=== PATIENT | female | born 1935 | race African-American/Black ===

== ENCOUNTER 2018-05-02 18:06 | Inpatient (IN) | payer MEDICARE, OTHER ==
[~2018-05-02] VITALS: Ht 152.4 cm; Wt 62.5 kg
[~2018-05-02 18:06] MED LIST: ASPI-611 PO; BACL10TA2 PO; BUDE0.5A11 NEB; CALC-331 PO; CHOL2000 PO; CLOP75TA15 PO; FLUT100D2 INH; FURO-150 PO; GARL1000; IMMU1VIA SQ; LOSA50TA3 PO; MULT-1141 PO; PANT40SU2 PO; PAT0.1OS OP; ROSU10TA PO; SPIIN INH; ePHEDrine 50MG/ML INJ. ONE
[2018-05-02] MEDS ORDERED: normal saline 1000ml 1,000 ML IV ONE (19:57)
[2018-05-02] MEDS ORDERED: normal saline 1000ML IV soln IVB ONE (20:00)
[2018-05-02] MEDS ORDERED: aspirin 81mg tab.chew PO ONE (20:00)
[2018-05-02] MEDS ORDERED: ondansetron/PF 4mg/2ml inj IV ONE (20:00)
[2018-05-02 20:22] LABS: CLARITY,URINE CLEAR (Clear); COLOR,URINE YELLOW (Yellow); GLUCOSE, URINE NEGATIVE (Neg); KETONES,URINE TRACE mg/dl (Neg); LEUKOCYTE ESTERASE ,URINE NEGATIVE (Neg); NITRITES, URINE NEGATIVE (Neg); OCCULT BLOOD,URINE TRACE-INTACT (Neg); PH,URINE 7.5 (4.8-8.0); PROTEIN,URINE 100 mg/dl (Neg)
[2018-05-02 20:28] LABS: BASOPHILS % (AUTO) 0.2 % (0-1); EOSINOPHILS # (AUTO) 0.1 X10'3 (0-0.9); EOSINOPHILS % (AUTO) 1.2 % (0-6); HEMATOCRIT 40.8 % (35.0-45.0); HEMOGLOBIN 13.2 g/dl (12.0-16.0); LYMPHOCYTES % (AUTO) 11.4 % (21-51); MEAN CORPUSCULAR HEMOGLOBIN 30.9 PG (27.0-31.0); MEAN CORPUSCULAR HGB CONC 32.3 % (33.0-36.5); MEAN CORPUSCULAR VOLUME 95.6 FL (78-98); MONOCYTES # (AUTO) 0.6 X10'3 (0-0.9); MONOCYTES % (AUTO) 7.1 % (2-12); NEUTROPHILS % (AUTO) 80.1 % (42-75); PLATELET COUNT 188 X10'3 (140-440); RED BLOOD COUNT 4.27 X10'6 (4.20-5.60); RED CELL DISTRIBUTION WIDTH 17.8 % (11.5-14.5); WHITE BLOOD COUNT 8.7 X10'3 (4.5-11.0)
[2018-05-02 20:29] LABS: UA COLLECTION TYPE CLN CATCH MIDSTREAM
[2018-05-02 20:30] LABS: BACTERIA,URINE FEW /HPF (Neg); RBC,URINE 0-2 /HPF (0-2); RENAL CELLS, URINE FEW /HPF; SQUAMOUS EPITHELIAL CELL,UR MODERATE /LPF (FEW)
[2018-05-02 20:44] LABS: INR 1.2 INR; PARTIAL THROMBOPLASTIN TIME 24 SECONDS (22-32); PROTHROMBIN TIME 12.5 SECONDS (9.0-12.0)
[2018-05-02 20:51] LABS: MAGNESIUM 2.4 MG/DL (1.5-2.4)
[2018-05-02] MEDS ORDERED: heparin 25,000 UNIT/250ml bag 250 ML IV SCH ×2 (21:03→21:51)
[2018-05-02] MEDS ORDERED: DOBUTamine-DoBUTrex 500mg/D5W 250 ML IV SCH ×2 (21:05→21:25)
[2018-05-02] MEDS ORDERED: heparin 10,000 units/1 ML INJ IV ONE (21:05)
[2018-05-02 21:09] LABS: ALANINE AMINOTRANSFERASE 45 U/L (12-78); ALBUMIN 2.7 G/DL (3.4-5.0); ALBUMIN/GLOBULIN RATIO 0.8 (1.1-1.5); ALKALINE PHOSPHATASE 73 IU/L (46-116); ANION GAP 10 (8-16); ASPARTATE AMINO TRANSFERASE 31 U/L (10-37); BILIRUBIN,TOTAL 0.8 MG/DL (0.1-1.0); BLOOD UREA NITROGEN 18 MG/DL (7-18); BUN/CREATININE RATIO 16.7 (6.6-38.0); CALCIUM 7.8 MG/DL (8.5-10.1); CHLORIDE 106 MMOL/L (99-107); CREATININE 1.08 MG/DL (0.40-0.90); GLUCOSE 96 MG/DL (70-104); POTASSIUM 4.1 MMOL/L (3.5-5.1); SODIUM 142 MMOL/L (135-145); TOTAL CARBON DIOXIDE 26.3 MMOL/L (24-32); TOTAL PROTEIN 6.1 G/DL (6.4-8.2); eGFR 59 ML/MIN
[2018-05-02] MEDS ORDERED: lisinopril 5mg tablet PO SCH (21:20)
[2018-05-02] MEDS ORDERED: diphenhydrAMINE 25mg capsule PO PRN (21:25)
[2018-05-02] MEDS ORDERED: magnesium hydroxide 30ml (MOM) UD suspension PO PRN (21:25)
[2018-05-02] MEDS ORDERED: acetaminophen 325mg tablet PO PRN (21:25)
[2018-05-02] MEDS ORDERED: metoclopramide 5 mg/ml inj IV PRN (21:25)
[2018-05-02] MEDS ORDERED: acetaminophen 650mg rectal suppository RC PRN (21:25)
[2018-05-02] MEDS ORDERED: diphenhydrAMINE 50 mg/ml inj IV PRN (21:25)
[2018-05-02] MEDS ORDERED: bisacodyl 10mg suppository rectal RC PRN (21:25)
[2018-05-02] MEDS ORDERED: heparin 10,000 units/1 ML INJ IV PRN (21:55)
[2018-05-02 22:01] LABS: LIPASE 89 U/L (73-393)
[2018-05-02 22:21] LABS: HEMOGLOBIN A1C 6.4 % (4.5-6.2)
[2018-05-02 22:22] LABS: D-DIMER 1.87 MG/L FEU (0-0.50)
[2018-05-02 22:25] LABS: PHOSPHORUS 2.5 MG/DL (2.3-4.5)
[2018-05-02 22:30] VITALS: BP 136/104
[2018-05-02] MEDS: furosemide 10 MG/1 ML 10ml inj IV SCH (23:48)
[2018-05-03] VITALS (17 sets, daily range): BP systolic 100–143; BP diastolic 57–112
[2018-05-03] MEDS: ondansetron/PF 4mg/2ml inj IV PRN ×2 (01:08→21:21)
[2018-05-03 03:35] LABS: BASOPHILS % (AUTO) 0.2 % (0-1); EOSINOPHILS # (AUTO) 0.1 X10'3 (0-0.9); EOSINOPHILS % (AUTO) 0.9 % (0-6); HEMATOCRIT 41.8 % (35.0-45.0); HEMOGLOBIN 13.6 g/dl (12.0-16.0); LYMPHOCYTES # (AUTO) 0.9 X10'3 (1.1-4.8); LYMPHOCYTES % (AUTO) 10.7 % (21-51); MEAN CORPUSCULAR HEMOGLOBIN 31.2 PG (27.0-31.0); MEAN CORPUSCULAR HGB CONC 32.6 % (33.0-36.5); MEAN CORPUSCULAR VOLUME 95.5 FL (78-98); MEAN PLATELET VOLUME 10.2 FL (7.4-10.4); MONOCYTES # (AUTO) 0.6 X10'3 (0-0.9); MONOCYTES % (AUTO) 7.4 % (2-12); NEUTROPHILS # (AUTO) 6.6 X10'3 (1.8-7.7); NEUTROPHILS % (AUTO) 80.8 % (42-75); PLATELET COUNT 190 X10'3 (140-440); RED BLOOD COUNT 4.38 X10'6 (4.20-5.60); RED CELL DISTRIBUTION WIDTH 17.6 % (11.5-14.5); WHITE BLOOD COUNT 8.2 X10'3 (4.5-11.0)
[2018-05-03 03:52] LABS: ALANINE AMINOTRANSFERASE 45 U/L (12-78); ALBUMIN 2.8 G/DL (3.4-5.0); ALBUMIN/GLOBULIN RATIO 0.8 (1.1-1.5); ALKALINE PHOSPHATASE 85 IU/L (46-116); ANION GAP 11 (8-16); ASPARTATE AMINO TRANSFERASE 31 U/L (10-37); BLOOD UREA NITROGEN 16 MG/DL (7-18); BUN/CREATININE RATIO 14.2 (6.6-38.0); CHLORIDE 105 MMOL/L (99-107); CHOL/HDL RATIO 1.8 (0.00-4.99); CHOLESTEROL 112 MG/DL (0-200); CREATININE 1.13 MG/DL (0.40-0.90); GLUCOSE 89 MG/DL (70-104); HDL CHOLESTEROL 63 MG/DL (35-60); LDL CHOLESTEROL 42 MG/DL (50-100); POTASSIUM 3.5 MMOL/L (3.5-5.1); SODIUM 142 MMOL/L (135-145); TOTAL CARBON DIOXIDE 25.7 MMOL/L (24-32); TOTAL PROTEIN 6.4 G/DL (6.4-8.2); TRIGLYCERIDES 73 MG/DL (20-135); eGFR 56 ML/MIN
[2018-05-03] MEDS: ipratropium 0.5 MG/2.5ML nebule IH SCH ×3 (03:59→20:46)
[2018-05-03] MEDS ORDERED: nitroGLYCERIN-Tridil 50MG/D5W 250 ML IV ONE (07:36)
[2018-05-03] MEDS ORDERED: fentaNYL/PF 50MCG/1 ML 2ML syringe ONE (07:37)
[2018-05-03] MEDS ORDERED: iohexol 350MG/ML 100ml bottle IV ONE (07:37)
[2018-05-03] MEDS ORDERED: midazolam 2 mg/2 ml injection ONE (07:37)
[2018-05-03] MEDS ORDERED: LIDOcaine 1% (10mg/ml)w/preservative injection 20ml MDV ONE (07:37)
[2018-05-03] MEDS ORDERED: heparin 1,000unit/ml 10ml vial 10 ML ONE (07:37)
[2018-05-03] MEDS ORDERED: iohexol 350 MG/ML 50ML vial IV ONE ×2 (07:37→09:00)
[2018-05-03] MEDS ORDERED: non-formulary drug (Aspirin (Aspir 81) 1 TABLET) PO SCH (08:00)
[2018-05-03] MEDS ORDERED: nitroGLYCERIN 0.2mg/hour patch TD SCH (08:00)
[2018-05-03] MEDS ORDERED: ROSUVASTATIN 10 MG PO SCH (08:00)
[2018-05-03] MEDS: acetylcysteine 200 MG/ml 4ml vial PO SCH ×2 (08:00→19:49)
[2018-05-03 09:26] LABS: ISTAT HGB ART 12.6 g/dl (12.0-16.0); ISTAT Hct ART 37 %PCV (35-48); ISTAT Hct MIX 33 %PCV (35-48); ISTAT O2 SATURATION ARTERIAL 93 % (95-98); ISTAT O2 SATURATION MIX VENOUS 64 % (60-80); ISTAT SOURCE ART; ISTAT SOURCE MIX
[2018-05-03] MEDS ORDERED: carvedilol 6.25mg tablet PO ONE (09:55)
[2018-05-03] MEDS ORDERED: losartan 50mg tablet PO ONE (09:55)
[2018-05-03] MEDS ORDERED: CARV-49 PO (09:55)
[2018-05-03] MEDS: DOBUTamine-DoBUTrex 500mg/D5W 250 ML IV SCH (09:55)
[2018-05-03] MEDS ORDERED: spironolactone 25 MG tablet PO ONE (09:55)
[2018-05-03] MEDS ORDERED: furosemide 20MG tablet PO ONE (09:55)
[2018-05-03] MEDS: furosemide 10 MG/1 ML 10ml inj IV SCH (10:21)
[2018-05-03] MEDS: aspirin 81mg tab.chew PO SCH (10:23)
[2018-05-03] MEDS: docusate sod 100mg capsule PO SCH ×2 (10:23→19:50)
[2018-05-03] MEDS: clopidogrel 75mg tablet PO SCH (10:25)
[2018-05-03] MEDS: baclofen 10mg tablet PO SCH ×2 (10:26→19:50)
[2018-05-03] MEDS: fluticasone nasal spray 16GM bottle NS SCH ×2 (10:30→19:51)
[2018-05-03] MEDS: nitrofuran/nitrofuran macrocrysal 100 MG capsule PO SCH ×2 (13:28→19:50)
[2018-05-03] MEDS ORDERED: magnesium Cl slow-release 64mg tablet PO PRN (13:50)
[2018-05-03] MEDS ORDERED: potassium Cl 20 mEq SR tablet PO PRN ×2 (13:50)
[2018-05-03] MEDS ORDERED: magnesium 4gm in 100ml NS 100 ML IV PRN (13:50)
[2018-05-03] MEDS ORDERED: potassium Cl 40MEQ/NS 500ml 500 ML IV PRN (13:50)
[2018-05-03] MEDS ORDERED: furosemide 40mg/4ml inj IV ONE (19:05)
[2018-05-03] MEDS: carVEDilol 12.5mg tablet PO SCH (19:51)
[2018-05-03] MEDS ORDERED: carvedilol 6.25mg tablet PO SCH (20:00)
[2018-05-03] MEDS: ROSUVASTATIN 10 MG PO SCH (21:00)
[2018-05-04] VITALS (12 sets, daily range): BP systolic 91–145; BP diastolic 50–97
[2018-05-04] MEDS: metoclopramide 5 mg/ml inj IV PRN ×2 (02:28→14:38)
[2018-05-04] MEDS: ipratropium 0.5 MG/2.5ML nebule IH SCH ×4 (03:00→20:31)
[2018-05-04 07:00] LABS: BASOPHILS % (AUTO) 0 % (0-1); EOSINOPHILS # (AUTO) 0.1 X10'3 (0-0.9); EOSINOPHILS % (AUTO) 0.6 % (0-6); HEMATOCRIT 42.2 % (35.0-45.0); HEMOGLOBIN 13.7 g/dl (12.0-16.0); LYMPHOCYTES # (AUTO) 0.6 X10'3 (1.1-4.8); LYMPHOCYTES % (AUTO) 7.8 % (21-51); MEAN CORPUSCULAR HGB CONC 32.5 % (33.0-36.5); MEAN CORPUSCULAR VOLUME 95.4 FL (78-98); MEAN PLATELET VOLUME 9.2 FL (7.4-10.4); MONOCYTES # (AUTO) 0.5 X10'3 (0-0.9); MONOCYTES % (AUTO) 6.7 % (2-12); NEUTROPHILS # (AUTO) 6.9 X10'3 (1.8-7.7); NEUTROPHILS % (AUTO) 84.9 % (42-75); PLATELET COUNT 180 X10'3 (140-440); RED BLOOD COUNT 4.42 X10'6 (4.20-5.60); WHITE BLOOD COUNT 8.2 X10'3 (4.5-11.0)
[2018-05-04 07:27] LABS: ALANINE AMINOTRANSFERASE 38 U/L (12-78); ALBUMIN 2.5 G/DL (3.4-5.0); ALBUMIN/GLOBULIN RATIO 0.7 (1.1-1.5); ALKALINE PHOSPHATASE 75 IU/L (46-116); ANION GAP 12 (8-16); ASPARTATE AMINO TRANSFERASE 28 U/L (10-37); BLOOD UREA NITROGEN 16 MG/DL (7-18); BUN/CREATININE RATIO 11.5 (6.6-38.0); CHLORIDE 105 MMOL/L (99-107); CHOL/HDL RATIO 1.9 (0.00-4.99); CHOLESTEROL 109 MG/DL (0-200); CREATININE 1.39 MG/DL (0.40-0.90); GLUCOSE 86 MG/DL (70-104); HDL CHOLESTEROL 58 MG/DL (35-60); LDL CHOLESTEROL 44 MG/DL (50-100); MAGNESIUM 2.3 MG/DL (1.5-2.4); POTASSIUM 4.4 MMOL/L (3.5-5.1); SODIUM 139 MMOL/L (135-145); TRIGLYCERIDES 67 MG/DL (20-135); eGFR 44 ML/MIN
[2018-05-04] MEDS ORDERED: losartan 50mg tablet PO SCH (08:00)
[2018-05-04] MEDS ORDERED: furosemide 40mg tablet PO SCH (08:00)
[2018-05-04] MEDS: clopidogrel 75mg tablet PO SCH (08:20)
[2018-05-04] MEDS: spironolactone 25 MG tablet PO SCH (08:20)
[2018-05-04] MEDS: furosemide 10 MG/1 ML 10ml inj IV SCH (08:20)
[2018-05-04] MEDS: aspirin 81mg tab.chew PO SCH (08:20)
[2018-05-04] MEDS: baclofen 10mg tablet PO SCH ×2 (08:21→20:45)
[2018-05-04] MEDS: docusate sod 100mg capsule PO SCH ×2 (08:21→20:45)
[2018-05-04] MEDS: fluticasone nasal spray 16GM bottle NS SCH ×2 (08:21→20:45)
[2018-05-04] MEDS: nitrofuran/nitrofuran macrocrysal 100 MG capsule PO SCH (08:21)
[2018-05-04] MEDS: carVEDilol 12.5mg tablet PO SCH ×2 (08:21→20:45)
[2018-05-04] MEDS: acetylcysteine 200 MG/ml 4ml vial PO SCH ×2 (08:22→20:00)
[2018-05-04] MEDS: DOBUTamine-DoBUTrex 500mg/D5W 250 ML IV SCH (14:40)
[2018-05-04] MEDS: ROSUVASTATIN 10 MG PO SCH (20:46)
[2018-05-04] MEDS: ondansetron/PF 4mg/2ml inj IV PRN (22:44)
[2018-05-05] VITALS (33 sets, daily range): BP systolic 52–160; BP diastolic 27–96
[2018-05-05] MEDS: metoclopramide 5 mg/ml inj IV PRN ×2 (00:08→18:57)
[2018-05-05] MEDS: ipratropium 0.5 MG/2.5ML nebule IH SCH ×4 (03:00→22:09)
[2018-05-05] MEDS ORDERED: diphenhydrAMINE 50 mg/ml inj IM ONE (03:10)
[2018-05-05 07:20] LABS: ALANINE AMINOTRANSFERASE 36 U/L (12-78); ALBUMIN 2.6 G/DL (3.4-5.0); ALBUMIN/GLOBULIN RATIO 0.7 (1.1-1.5); ALKALINE PHOSPHATASE 79 IU/L (46-116); ANION GAP 14 (8-16); ASPARTATE AMINO TRANSFERASE 30 U/L (10-37); BILIRUBIN,TOTAL 1.1 MG/DL (0.1-1.0); BLOOD UREA NITROGEN 18 MG/DL (7-18); BUN/CREATININE RATIO 10.2 (6.6-38.0); CALCIUM 8.6 MG/DL (8.5-10.1); CHLORIDE 105 MMOL/L (99-107); CREATININE 1.77 MG/DL (0.40-0.90); GLUCOSE 90 MG/DL (70-104); SODIUM 140 MMOL/L (135-145); TOTAL CARBON DIOXIDE 21.3 MMOL/L (24-32); TOTAL PROTEIN 6.3 G/DL (6.4-8.2); eGFR 33 ML/MIN
[2018-05-05 07:23] LABS: POTASSIUM 3.7 MMOL/L (3.5-5.1)
[2018-05-05 07:45] LABS: BASOPHILS % (AUTO) 0.2 % (0-1); EOSINOPHILS % (AUTO) 0.2 % (0-6); HEMATOCRIT 42.5 % (35.0-45.0); LYMPHOCYTES # (AUTO) 0.6 X10'3 (1.1-4.8); LYMPHOCYTES % (AUTO) 7.4 % (21-51); MEAN CORPUSCULAR HEMOGLOBIN 31.1 PG (27.0-31.0); MEAN CORPUSCULAR HGB CONC 32.8 % (33.0-36.5); MEAN CORPUSCULAR VOLUME 94.7 FL (78-98); MEAN PLATELET VOLUME 8.9 FL (7.4-10.4); MONOCYTES # (AUTO) 0.6 X10'3 (0-0.9); MONOCYTES % (AUTO) 7.4 % (2-12); NEUTROPHILS % (AUTO) 84.8 % (42-75); PLATELET COUNT 182 X10'3 (140-440); RED BLOOD COUNT 4.48 X10'6 (4.20-5.60); RED CELL DISTRIBUTION WIDTH 17.5 % (11.5-14.5); WHITE BLOOD COUNT 8.3 X10'3 (4.5-11.0)
[2018-05-05] MEDS: baclofen 10mg tablet PO SCH ×2 (08:00→21:09)
[2018-05-05] MEDS: acetylcysteine 200 MG/ml 4ml vial PO SCH ×2 (08:00→21:10)
[2018-05-05] MEDS: spironolactone 25 MG tablet PO SCH (08:33)
[2018-05-05] MEDS: docusate sod 100mg capsule PO SCH ×2 (08:33→21:10)
[2018-05-05] MEDS: clopidogrel 75mg tablet PO SCH (08:33)
[2018-05-05] MEDS: aspirin 81mg tab.chew PO SCH (08:33)
[2018-05-05] MEDS: carVEDilol 12.5mg tablet PO SCH ×2 (08:33→21:09)
[2018-05-05] MEDS: furosemide 10 MG/1 ML 10ml inj IV SCH (08:34)
[2018-05-05] MEDS: fluticasone nasal spray 16GM bottle NS SCH ×2 (08:35→20:00)
[2018-05-05 09:34] LABS: MAGNESIUM 2.4 MG/DL (1.5-2.4)
[2018-05-05] MEDS: losartan 50mg tablet PO SCH (12:31)
[2018-05-05] MEDS ORDERED: hydrALAZINE 20mg/ml inj. IV PRN (13:45)
[2018-05-05] MEDS: ondansetron/PF 4mg/2ml inj IV PRN (15:18)
[2018-05-05] MEDS: DOBUTamine-DoBUTrex 500mg/D5W 250 ML IV SCH (15:27)
[2018-05-05] MEDS ORDERED: MIDAZolam 5mg/5ml vial ONE (15:34)
[2018-05-05] MEDS ORDERED: fentaNYL/PF 50MCG/1 ML 2ML syringe ONE (15:34)
[2018-05-05] MEDS ORDERED: LIDOcaine Viscous 15ml cup ONE (15:34)
[2018-05-05] MEDS: pantoprazole 40MG/NS 100ML BAG 100 ML IV SCH ×2 (19:13→23:25)
[2018-05-05] MEDS ORDERED: pantoprazole 40 MG vial IV SCH (20:00)
[2018-05-05] MEDS: ROSUVASTATIN 10 MG PO SCH (21:00)
[2018-05-06] MEDS: ipratropium 0.5 MG/2.5ML nebule IH SCH ×4 (02:50→20:24)
[2018-05-06 03:00] VITALS: BP 157/79
[2018-05-06 06:00] VITALS: BP 145/86
[2018-05-06 06:57] LABS: BASOPHILS % (AUTO) 0.1 % (0-1); EOSINOPHILS # (AUTO) 0.1 X10'3 (0-0.9); EOSINOPHILS % (AUTO) 0.6 % (0-6); HEMATOCRIT 44.6 % (35.0-45.0); HEMOGLOBIN 14.7 g/dl (12.0-16.0); LYMPHOCYTES # (AUTO) 0.6 X10'3 (1.1-4.8); MEAN CORPUSCULAR HGB CONC 32.9 % (33.0-36.5); MEAN CORPUSCULAR VOLUME 94.2 FL (78-98); MEAN PLATELET VOLUME 9.3 FL (7.4-10.4); MONOCYTES # (AUTO) 0.6 X10'3 (0-0.9); MONOCYTES % (AUTO) 6.9 % (2-12); NEUTROPHILS # (AUTO) 8.1 X10'3 (1.8-7.7); NEUTROPHILS % (AUTO) 86.4 % (42-75); PLATELET COUNT 183 X10'3 (140-440); RED BLOOD COUNT 4.73 X10'6 (4.20-5.60); RED CELL DISTRIBUTION WIDTH 17.1 % (11.5-14.5); WHITE BLOOD COUNT 9.3 X10'3 (4.5-11.0)
[2018-05-06 07:39] LABS: ALANINE AMINOTRANSFERASE 39 U/L (12-78); ALBUMIN 2.6 G/DL (3.4-5.0); ALBUMIN/GLOBULIN RATIO 0.7 (1.1-1.5); ALKALINE PHOSPHATASE 77 IU/L (46-116); ANION GAP 16 (8-16); ASPARTATE AMINO TRANSFERASE 28 U/L (10-37); BILIRUBIN,TOTAL 1.3 MG/DL (0.1-1.0); BLOOD UREA NITROGEN 21 MG/DL (7-18); BUN/CREATININE RATIO 11.2 (6.6-38.0); CALCIUM 8.6 MG/DL (8.5-10.1); CHLORIDE 105 MMOL/L (99-107); CREATININE 1.87 MG/DL (0.40-0.90); GLUCOSE 82 MG/DL (70-104); SODIUM 142 MMOL/L (135-145); TOTAL CARBON DIOXIDE 20.9 MMOL/L (24-32); TOTAL PROTEIN 6.2 G/DL (6.4-8.2); eGFR 31 ML/MIN
[2018-05-06] MEDS: clopidogrel 75mg tablet PO SCH (07:52)
[2018-05-06] MEDS: carVEDilol 12.5mg tablet PO SCH ×2 (07:53→21:01)
[2018-05-06] MEDS: acetaminophen 325mg tablet PO PRN (07:54)
[2018-05-06] MEDS: baclofen 10mg tablet PO SCH (07:54)
[2018-05-06] MEDS: losartan 50mg tablet PO SCH (07:55)
[2018-05-06] MEDS: aspirin 81mg tab.chew PO SCH (07:55)
[2018-05-06 07:56] LABS: POTASSIUM 2.9 MMOL/L (3.5-5.1)
[2018-05-06] MEDS: spironolactone 25 MG tablet PO SCH (07:56)
[2018-05-06] MEDS: fluticasone nasal spray 16GM bottle NS SCH ×2 (07:56→21:02)
[2018-05-06] MEDS: docusate sod 100mg capsule PO SCH ×2 (07:59→21:01)
[2018-05-06] MEDS: pantoprazole 40MG/NS 100ML BAG 100 ML IV SCH ×2 (09:51→10:06)
[2018-05-06] MEDS: ondansetron/PF 4mg/2ml inj IV PRN (10:42)
[2018-05-06] MEDS: potassium Cl 40MEQ/NS 500ml 500 ML IV PRN ×2 (10:45→17:45)
[2018-05-06 11:00] VITALS: BP 147/100
[2018-05-06] MEDS ORDERED: metoclopramide 5 mg/ml inj IV PRN (12:10)
[2018-05-06] MEDS: metoclopramide 5 mg/ml inj IV PRN ×2 (12:43→19:40)
[2018-05-06 15:00] VITALS: BP 148/89
[2018-05-06] MEDS: lactose-reduced food (Ensure High Protein) 237ml bottle PO SCH (18:00)
[2018-05-06 19:00] VITALS: BP 150/94
[2018-05-06] MEDS ORDERED: magnesium Cl slow-release 64mg tablet PO PRN (19:20)
[2018-05-06] MEDS ORDERED: potassium Cl 40MEQ/NS 500ml 500 ML IV PRN ×2 (19:20)
[2018-05-06] MEDS ORDERED: potassium Cl 20 mEq SR tablet PO PRN ×2 (19:20)
[2018-05-06] MEDS ORDERED: magnesium 4gm in 100ml NS 100 ML IV PRN (19:20)
[2018-05-06] MEDS ORDERED: pantoprazole 40 MG vial IV ONE (20:00)
[2018-05-06] MEDS: ROSUVASTATIN 10 MG PO SCH (21:00)
[2018-05-06] MEDS: heparin, porcine 5000 units/ml vial SQ SCH (21:00)
[2018-05-06 23:00] VITALS: BP 144/91
[2018-05-07] VITALS (12 sets, daily range): BP systolic 76–152; BP diastolic 55–100
[2018-05-07] MEDS: ipratropium 0.5 MG/2.5ML nebule IH SCH ×4 (02:21→21:19)
[2018-05-07 05:54] LABS: BASOPHILS % (AUTO) 0 % (0-1); EOSINOPHILS # (AUTO) 0.1 X10'3 (0-0.9); EOSINOPHILS % (AUTO) 0.7 % (0-6); HEMATOCRIT 42.4 % (35.0-45.0); HEMOGLOBIN 13.9 g/dl (12.0-16.0); LYMPHOCYTES # (AUTO) 0.6 X10'3 (1.1-4.8); LYMPHOCYTES % (AUTO) 6.7 % (21-51); MEAN CORPUSCULAR HEMOGLOBIN 31.2 PG (27.0-31.0); MEAN CORPUSCULAR HGB CONC 32.8 % (33.0-36.5); MEAN CORPUSCULAR VOLUME 95.3 FL (78-98); MEAN PLATELET VOLUME 9.3 FL (7.4-10.4); MONOCYTES # (AUTO) 0.6 X10'3 (0-0.9); MONOCYTES % (AUTO) 7.1 % (2-12); NEUTROPHILS # (AUTO) 7.7 X10'3 (1.8-7.7); NEUTROPHILS % (AUTO) 85.5 % (42-75); PLATELET COUNT 161 X10'3 (140-440); RED BLOOD COUNT 4.45 X10'6 (4.20-5.60); RED CELL DISTRIBUTION WIDTH 17.9 % (11.5-14.5)
[2018-05-07] MEDS: DOBUTamine-DoBUTrex 500mg/D5W 250 ML IV SCH (06:44)
[2018-05-07 07:46] LABS: ALANINE AMINOTRANSFERASE 34 U/L (12-78); ALBUMIN 2.6 G/DL (3.4-5.0); ALBUMIN/GLOBULIN RATIO 0.7 (1.1-1.5); ALKALINE PHOSPHATASE 73 IU/L (46-116); ANION GAP 13 (8-16); ASPARTATE AMINO TRANSFERASE 31 U/L (10-37); BILIRUBIN,TOTAL 1.4 MG/DL (0.1-1.0); BLOOD UREA NITROGEN 22 MG/DL (7-18); BUN/CREATININE RATIO 14.3 (6.6-38.0); CALCIUM 8.9 MG/DL (8.5-10.1); CHLORIDE 109 MMOL/L (99-107); CREATININE 1.54 MG/DL (0.40-0.90); GLUCOSE 71 MG/DL (70-104); MAGNESIUM 2.4 MG/DL (1.5-2.4); PHOSPHORUS 3.3 MG/DL (2.3-4.5); POTASSIUM 4.5 MMOL/L (3.5-5.1); SODIUM 142 MMOL/L (135-145); TOTAL CARBON DIOXIDE 20.1 MMOL/L (24-32); TOTAL PROTEIN 6.1 G/DL (6.4-8.2); eGFR 39 ML/MIN
[2018-05-07] MEDS: aspirin 81mg tab.chew PO SCH ×2 (08:00→09:25)
[2018-05-07] MEDS: docusate sod 100mg capsule PO SCH ×3 (08:00→21:55)
[2018-05-07] MEDS: lactose-reduced food (Ensure High Protein) 237ml bottle PO SCH ×3 (08:00→18:00)
[2018-05-07] MEDS: fluticasone nasal spray 16GM bottle NS SCH ×2 (08:00→21:58)
[2018-05-07] MEDS: losartan 50mg tablet PO SCH ×2 (08:00→09:26)
[2018-05-07] MEDS: ondansetron/PF 4mg/2ml inj IV PRN (09:26)
[2018-05-07] MEDS: heparin, porcine 5000 units/ml vial SQ SCH ×2 (09:26→21:55)
[2018-05-07] MEDS: spironolactone 25 MG tablet PO SCH (09:26)
[2018-05-07] MEDS: carVEDilol 12.5mg tablet PO SCH ×2 (09:26→21:55)
[2018-05-07] MEDS ORDERED: normal saline 1000ml 1,000 ML IV ONE (12:00)
[2018-05-07] MEDS: Protein Shake (high protein) 240ml (8oz) cup PO SCH ×2 (13:00→17:51)
[2018-05-07] MEDS: metoclopramide 10mg/10 ml UD oral solution PO SCH (16:45)
[2018-05-07] MEDS: acetaminophen 325mg tablet PO PRN (16:47)
[2018-05-07] MEDS: ROSUVASTATIN 10 MG PO SCH (21:00)
[2018-05-07] MEDS: gabapentin 300mg capsule PO SCH (21:55)
[2018-05-07] MEDS: pantoprazole 40 MG vial IV SCH (21:56)
[2018-05-08] VITALS (19 sets, daily range): BP systolic 76–176; BP diastolic 43–113
[2018-05-08] MEDS: metoclopramide 10mg/10 ml UD oral solution PO SCH ×4 (00:59→23:53)
[2018-05-08] MEDS: ipratropium 0.5 MG/2.5ML nebule IH SCH ×4 (03:16→21:14)
[2018-05-08 06:59] LABS: BASOPHILS % (AUTO) 0.3 % (0-1); EOSINOPHILS % (AUTO) 0 % (0-6); HEMATOCRIT 40.7 % (35.0-45.0); HEMOGLOBIN 13.4 g/dl (12.0-16.0); LYMPHOCYTES # (AUTO) 0.6 X10'3 (1.1-4.8); LYMPHOCYTES % (AUTO) 8.2 % (21-51); MEAN CORPUSCULAR HEMOGLOBIN 31.4 PG (27.0-31.0); MEAN PLATELET VOLUME 9.5 FL (7.4-10.4); MONOCYTES # (AUTO) 0.6 X10'3 (0-0.9); NEUTROPHILS % (AUTO) 83.5 % (42-75); PLATELET COUNT 180 X10'3 (140-440); RED BLOOD COUNT 4.28 X10'6 (4.20-5.60); RED CELL DISTRIBUTION WIDTH 17.6 % (11.5-14.5); WHITE BLOOD COUNT 7.2 X10'3 (4.5-11.0)
[2018-05-08] MEDS: pantoprazole 40 MG vial IV SCH (07:23)
[2018-05-08] MEDS: fluticasone nasal spray 16GM bottle NS SCH ×2 (07:24→20:00)
[2018-05-08] MEDS: aspirin 81mg tab.chew PO SCH (07:24)
[2018-05-08] MEDS: heparin, porcine 5000 units/ml vial SQ SCH ×2 (07:24→21:07)
[2018-05-08] MEDS: carVEDilol 12.5mg tablet PO SCH ×2 (07:24→20:00)
[2018-05-08] MEDS: gabapentin 300mg capsule PO SCH ×2 (07:24→21:07)
[2018-05-08] MEDS: losartan 50mg tablet PO SCH (07:24)
[2018-05-08] MEDS: docusate sod 100mg capsule PO SCH ×2 (07:25→21:07)
[2018-05-08 07:26] LABS: ALANINE AMINOTRANSFERASE 26 U/L (12-78); ALBUMIN 2.3 G/DL (3.4-5.0); ALBUMIN/GLOBULIN RATIO 0.7 (1.1-1.5); ALKALINE PHOSPHATASE 72 IU/L (46-116); ANION GAP 12 (8-16); ASPARTATE AMINO TRANSFERASE 26 U/L (10-37); BILIRUBIN,TOTAL 1.1 MG/DL (0.1-1.0); BLOOD UREA NITROGEN 21 MG/DL (7-18); BUN/CREATININE RATIO 17.5 (6.6-38.0); CALCIUM 8.5 MG/DL (8.5-10.1); CHLORIDE 106 MMOL/L (99-107); GLUCOSE 95 MG/DL (70-104); MAGNESIUM 2.2 MG/DL (1.5-2.4); POTASSIUM 3.9 MMOL/L (3.5-5.1); SODIUM 137 MMOL/L (135-145); TOTAL CARBON DIOXIDE 18.8 MMOL/L (24-32); TOTAL PROTEIN 5.7 G/DL (6.4-8.2); eGFR 52 ML/MIN
[2018-05-08] MEDS: spironolactone 25 MG tablet PO SCH (07:32)
[2018-05-08] MEDS: lactose-reduced food (Ensure High Protein) 237ml bottle PO SCH ×3 (08:00→18:00)
[2018-05-08] MEDS: Protein Shake (high protein) 240ml (8oz) cup PO SCH ×3 (08:00→18:00)
[2018-05-08 10:01] LABS: ABG BASE EXCESS -9.7 mmol/L (-2.0-3.0); ABG HCO3 13.6 mmol/L (22.0-26.0); ABG OXYGEN SATURATION 97.2 % (95-98); ABG PCO2 (T) 24.4 mmHg (32.0-45.0); ABG PH (T) 7.365 (7.350-7.450); ABG PO2 (T) 101.9 mmHg (83-108); ALLEN'S TEST Positive; FCOHb 0.7 % (0.5-1.5); FLOW 4 L/min; FO2Hb 96.5 % (94-100); TOTAL HEMOGLOBIN 14.5 G/dl (12.0-16.0)
[2018-05-08] MEDS: DOBUTamine-DoBUTrex 500mg/D5W 250 ML IV SCH ×2 (10:29→13:34)
[2018-05-08] MEDS: acetaminophen 325mg tablet PO PRN ×2 (17:00→23:53)
[2018-05-08] MEDS ORDERED: albumin (Human) 5% 250ml 250 ML IV ONE ×2 (19:20)
[2018-05-08 19:45] LABS: BASOPHILS % (AUTO) 0.2 % (0-1); EOSINOPHILS # (AUTO) 0.1 X10'3 (0-0.9); EOSINOPHILS % (AUTO) 0.9 % (0-6); HEMATOCRIT 40.9 % (35.0-45.0); HEMOGLOBIN 13.4 g/dl (12.0-16.0); LYMPHOCYTES # (AUTO) 0.5 X10'3 (1.1-4.8); LYMPHOCYTES % (AUTO) 5.2 % (21-51); MEAN CORPUSCULAR HEMOGLOBIN 31.1 PG (27.0-31.0); MEAN CORPUSCULAR HGB CONC 32.8 % (33.0-36.5); MEAN CORPUSCULAR VOLUME 94.7 FL (78-98); MEAN PLATELET VOLUME 8.9 FL (7.4-10.4); MONOCYTES # (AUTO) 0.6 X10'3 (0-0.9); MONOCYTES % (AUTO) 6.3 % (2-12); NEUTROPHILS # (AUTO) 8.2 X10'3 (1.8-7.7); NEUTROPHILS % (AUTO) 87.4 % (42-75); PLATELET COUNT 180 X10'3 (140-440); RED BLOOD COUNT 4.32 X10'6 (4.20-5.60); RED CELL DISTRIBUTION WIDTH 17.8 % (11.5-14.5); WHITE BLOOD COUNT 9.3 X10'3 (4.5-11.0)
[2018-05-08 20:04] LABS: ALANINE AMINOTRANSFERASE 38 U/L (12-78); ALBUMIN 2.3 G/DL (3.4-5.0); ALBUMIN/GLOBULIN RATIO 0.7 (1.1-1.5); ALKALINE PHOSPHATASE 75 IU/L (46-116); ANION GAP 13 (8-16); ASPARTATE AMINO TRANSFERASE 35 U/L (10-37); BILIRUBIN,TOTAL 1.1 MG/DL (0.1-1.0); BLOOD UREA NITROGEN 22 MG/DL (7-18); BUN/CREATININE RATIO 17.6 (6.6-38.0); CALCIUM 8.2 MG/DL (8.5-10.1); CHLORIDE 105 MMOL/L (99-107); CREATININE 1.25 MG/DL (0.40-0.90); GLUCOSE 117 MG/DL (70-104); MAGNESIUM 2.1 MG/DL (1.5-2.4); POTASSIUM 3.8 MMOL/L (3.5-5.1); SODIUM 136 MMOL/L (135-145); TOTAL CARBON DIOXIDE 18.3 MMOL/L (24-32); TOTAL PROTEIN 5.6 G/DL (6.4-8.2); eGFR 50 ML/MIN
[2018-05-08] MEDS: ROSUVASTATIN 10 MG PO SCH (21:00)
[2018-05-08] MEDS: pantoprazole 40mg Tablet.DR PO SCH (21:07)
[2018-05-09] VITALS (24 sets, daily range): BP systolic 76–166; BP diastolic 51–103
[2018-05-09] MEDS: ipratropium 0.5 MG/2.5ML nebule IH SCH ×4 (03:50→20:40)
[2018-05-09] MEDS ORDERED: furosemide 40mg/4ml inj IV ONE (04:55)
[2018-05-09 05:29] LABS: BASOPHILS % (AUTO) 0.2 % (0-1); EOSINOPHILS # (AUTO) 0.1 X10'3 (0-0.9); EOSINOPHILS % (AUTO) 1.3 % (0-6); HEMATOCRIT 35.9 % (35.0-45.0); LYMPHOCYTES # (AUTO) 0.5 X10'3 (1.1-4.8); LYMPHOCYTES % (AUTO) 6.5 % (21-51); MEAN CORPUSCULAR HEMOGLOBIN 31.7 PG (27.0-31.0); MEAN CORPUSCULAR HGB CONC 33.3 % (33.0-36.5); MEAN PLATELET VOLUME 9.4 FL (7.4-10.4); MONOCYTES # (AUTO) 0.6 X10'3 (0-0.9); MONOCYTES % (AUTO) 7.6 % (2-12); NEUTROPHILS # (AUTO) 6.1 X10'3 (1.8-7.7); NEUTROPHILS % (AUTO) 84.4 % (42-75); PLATELET COUNT 154 X10'3 (140-440); RED BLOOD COUNT 3.78 X10'6 (4.20-5.60); RED CELL DISTRIBUTION WIDTH 17.6 % (11.5-14.5); WHITE BLOOD COUNT 7.2 X10'3 (4.5-11.0)
[2018-05-09 05:59] LABS: ALANINE AMINOTRANSFERASE 32 U/L (12-78); ALBUMIN 2.8 G/DL (3.4-5.0); ALKALINE PHOSPHATASE 56 IU/L (46-116); ANION GAP 14 (8-16); ASPARTATE AMINO TRANSFERASE 31 U/L (10-37); BILIRUBIN,TOTAL 1.2 MG/DL (0.1-1.0); BLOOD UREA NITROGEN 22 MG/DL (7-18); BUN/CREATININE RATIO 19.5 (6.6-38.0); CALCIUM 8.2 MG/DL (8.5-10.1); CHLORIDE 106 MMOL/L (99-107); CREATININE 1.13 MG/DL (0.40-0.90); GLUCOSE 98 MG/DL (70-104); MAGNESIUM 2.2 MG/DL (1.5-2.4); PHOSPHORUS 3.1 MG/DL (2.3-4.5); POTASSIUM 3.7 MMOL/L (3.5-5.1); SODIUM 139 MMOL/L (135-145); TOTAL CARBON DIOXIDE 19.1 MMOL/L (24-32); TOTAL PROTEIN 5.6 G/DL (6.4-8.2); eGFR 56 ML/MIN
[2018-05-09] MEDS: lactose-reduced food (Ensure High Protein) 237ml bottle PO SCH ×3 (08:00→18:00)
[2018-05-09] MEDS: fluticasone nasal spray 16GM bottle NS SCH ×2 (08:00→20:55)
[2018-05-09] MEDS: pantoprazole 40mg Tablet.DR PO SCH ×2 (08:15→20:52)
[2018-05-09] MEDS: aspirin 81mg tab.chew PO SCH (08:15)
[2018-05-09] MEDS: gabapentin 300mg capsule PO SCH (08:15)
[2018-05-09] MEDS: docusate sod 100mg capsule PO SCH ×2 (08:15→20:52)
[2018-05-09] MEDS: carVEDilol 12.5mg tablet PO SCH (08:15)
[2018-05-09] MEDS: losartan 50mg tablet PO SCH (08:15)
[2018-05-09] MEDS: Protein Shake (high protein) 240ml (8oz) cup PO SCH ×3 (08:15→18:00)
[2018-05-09] MEDS: heparin, porcine 5000 units/ml vial SQ SCH ×2 (08:16→20:52)
[2018-05-09] MEDS: spironolactone 25 MG tablet PO SCH (08:16)
[2018-05-09] MEDS: metoclopramide 10mg/10 ml UD oral solution PO SCH ×2 (08:20→16:00)
[2018-05-09] MEDS: acetaminophen 325mg tablet PO PRN (09:15)
[2018-05-09] MEDS ORDERED: traMADol 50MG tablet PO PRN (10:20)
[2018-05-09 14:01] LABS: ABG BASE EXCESS -5.3 mmol/L (-2.0-3.0); ABG HCO3 17.8 mmol/L (22.0-26.0); ABG OXYGEN SATURATION 97.2 % (95-98); ABG PH (T) 7.421 (7.350-7.450); ALLEN'S TEST Positive; FCOHb 0.4 % (0.5-1.5); FLOW 2 L/min; FO2Hb 96.8 % (94-100); RESPIRATORY RATE (OBSERVED) 14 b/min; TOTAL HEMOGLOBIN 13.1 G/dl (12.0-16.0)
[2018-05-09] MEDS ORDERED: albumin (human) 25% 100ml IV 100 ML IV ONE ×2 (17:05)
[2018-05-09] MEDS: ROSUVASTATIN 10 MG PO SCH (20:53)
[2018-05-09] MEDS: carvedilol 6.25mg tablet PO SCH (20:53)
[2018-05-09] MEDS: DOBUTamine-DoBUTrex 500mg/D5W 250 ML IV SCH (21:37)
[2018-05-10] VITALS (26 sets, daily range): BP systolic 71–152; BP diastolic 42–89
[2018-05-10] MEDS: ipratropium 0.5 MG/2.5ML nebule IH SCH ×4 (02:49→21:42)
[2018-05-10] MEDS: acetaminophen 325mg tablet PO PRN ×3 (03:07→21:04)
[2018-05-10 05:24] LABS: BASOPHILS % (AUTO) 0.5 % (0-1); EOSINOPHILS % (AUTO) 0 % (0-6); HEMATOCRIT 34.8 % (35.0-45.0); HEMOGLOBIN 11.5 g/dl (12.0-16.0); LYMPHOCYTES # (AUTO) 0.4 X10'3 (1.1-4.8); LYMPHOCYTES % (AUTO) 4.7 % (21-51); MEAN CORPUSCULAR HEMOGLOBIN 31.4 PG (27.0-31.0); MEAN PLATELET VOLUME 9.6 FL (7.4-10.4); MONOCYTES # (AUTO) 0.6 X10'3 (0-0.9); MONOCYTES % (AUTO) 8.1 % (2-12); NEUTROPHILS # (AUTO) 6.5 X10'3 (1.8-7.7); NEUTROPHILS % (AUTO) 86.7 % (42-75); PLATELET COUNT 134 X10'3 (140-440); RED BLOOD COUNT 3.66 X10'6 (4.20-5.60); RED CELL DISTRIBUTION WIDTH 17.5 % (11.5-14.5); WHITE BLOOD COUNT 7.5 X10'3 (4.5-11.0)
[2018-05-10 05:37] LABS: ALANINE AMINOTRANSFERASE 26 U/L (12-78); ALBUMIN 3.5 G/DL (3.4-5.0); ALBUMIN/GLOBULIN RATIO 1.5 (1.1-1.5); ALKALINE PHOSPHATASE 48 IU/L (46-116); ANION GAP 13 (8-16); ASPARTATE AMINO TRANSFERASE 21 U/L (10-37); BILIRUBIN,TOTAL 1.6 MG/DL (0.1-1.0); BLOOD UREA NITROGEN 17 MG/DL (7-18); BUN/CREATININE RATIO 17.9 (6.6-38.0); CHLORIDE 104 MMOL/L (99-107); CREATININE 0.95 MG/DL (0.40-0.90); GLUCOSE 111 MG/DL (70-104); MAGNESIUM 1.9 MG/DL (1.5-2.4); PHOSPHORUS 2.4 MG/DL (2.3-4.5); POTASSIUM 4.1 MMOL/L (3.5-5.1); SODIUM 137 MMOL/L (135-145); TOTAL CARBON DIOXIDE 20.1 MMOL/L (24-32); TOTAL PROTEIN 5.8 G/DL (6.4-8.2); eGFR 68 ML/MIN
[2018-05-10] MEDS: lactose-reduced food (Ensure High Protein) 237ml bottle PO SCH ×4 (08:00→22:49)
[2018-05-10] MEDS: Protein Shake (high protein) 240ml (8oz) cup PO SCH ×3 (08:00→18:00)
[2018-05-10] MEDS ORDERED: losartan 25mg tablet PO SCH (08:00)
[2018-05-10] MEDS: aspirin 81mg tab.chew PO SCH (08:02)
[2018-05-10] MEDS: docusate sod 100mg capsule PO SCH ×2 (08:02→20:56)
[2018-05-10] MEDS: fluticasone nasal spray 16GM bottle NS SCH ×2 (08:02→20:57)
[2018-05-10] MEDS: carvedilol 6.25mg tablet PO SCH (08:02)
[2018-05-10] MEDS: heparin, porcine 5000 units/ml vial SQ SCH ×2 (08:03→20:56)
[2018-05-10] MEDS: pantoprazole 40mg Tablet.DR PO SCH ×2 (08:03→20:56)
[2018-05-10] MEDS: spironolactone 25 MG tablet PO SCH (08:03)
[2018-05-10] MEDS: metoclopramide 10mg/10 ml UD oral solution PO SCH ×3 (08:03→16:15)
[2018-05-10] MEDS: mag hydrox/Alum hydrox/simeth 30ml oral suspension PO PRN (10:47)
[2018-05-10] MEDS ORDERED: levetiracetam inj 500 MG in normal saline 100ml IV soln 95 ML IV ONE (11:45)
[2018-05-10] MEDS ORDERED: albumin (human) 25% 100ml IV 100 ML IV ONE ×3 (12:25→21:20)
[2018-05-10] MEDS ORDERED: metoclopramide 10mg/10 ml UD oral solution PO PRN (17:30)
[2018-05-10] MEDS: levetiracetam inj 500 MG in normal saline 100ml IV soln 95 ML IV SCH (20:56)
[2018-05-10] MEDS: carVEDilol 3.125mg tablet PO SCH (20:56)
[2018-05-10] MEDS: ROSUVASTATIN 10 MG PO SCH (21:00)
[2018-05-10] MEDS ORDERED: normal saline 500ml IV soln 500 ML IV ONE (21:20)
[2018-05-11] VITALS (24 sets, daily range): BP systolic 78–154; BP diastolic 50–95
[2018-05-11] MEDS: mag hydrox/Alum hydrox/simeth 30ml oral suspension PO PRN (01:22)
[2018-05-11] MEDS: temazepam 15mg capsule PO PRN ×2 (01:33→20:59)
[2018-05-11] MEDS: ipratropium 0.5 MG/2.5ML nebule IH SCH ×4 (02:53→21:09)
[2018-05-11] MEDS: DOBUTamine-DoBUTrex 500mg/D5W 250 ML IV SCH ×2 (03:42→19:36)
[2018-05-11 05:30] LABS: BASOPHILS % (AUTO) 0 % (0-1); EOSINOPHILS # (AUTO) 0.1 X10'3 (0-0.9); HEMATOCRIT 30.5 % (35.0-45.0); HEMOGLOBIN 10.1 g/dl (12.0-16.0); LYMPHOCYTES # (AUTO) 0.6 X10'3 (1.1-4.8); LYMPHOCYTES % (AUTO) 7.9 % (21-51); MEAN CORPUSCULAR HEMOGLOBIN 31.4 PG (27.0-31.0); MEAN CORPUSCULAR VOLUME 95.1 FL (78-98); MEAN PLATELET VOLUME 8.8 FL (7.4-10.4); MONOCYTES # (AUTO) 0.6 X10'3 (0-0.9); MONOCYTES % (AUTO) 7.9 % (2-12); NEUTROPHILS # (AUTO) 6.1 X10'3 (1.8-7.7); NEUTROPHILS % (AUTO) 83.2 % (42-75); PLATELET COUNT 132 X10'3 (140-440); RED BLOOD COUNT 3.21 X10'6 (4.20-5.60); RED CELL DISTRIBUTION WIDTH 17.7 % (11.5-14.5); WHITE BLOOD COUNT 7.3 X10'3 (4.5-11.0)
[2018-05-11 05:50] LABS: ALANINE AMINOTRANSFERASE 23 U/L (12-78); ALKALINE PHOSPHATASE 54 IU/L (46-116); ANION GAP 13 (8-16); ASPARTATE AMINO TRANSFERASE 20 U/L (10-37); BILIRUBIN,TOTAL 1.7 MG/DL (0.1-1.0); BLOOD UREA NITROGEN 19 MG/DL (7-18); BUN/CREATININE RATIO 18.3 (6.6-38.0); CALCIUM 7.9 MG/DL (8.5-10.1); CHLORIDE 104 MMOL/L (99-107); CREATININE 1.04 MG/DL (0.40-0.90); GLUCOSE 113 MG/DL (70-104); PHOSPHORUS 2.2 MG/DL (2.3-4.5); POTASSIUM 4.3 MMOL/L (3.5-5.1); SODIUM 136 MMOL/L (135-145); TOTAL CARBON DIOXIDE 18.6 MMOL/L (24-32); eGFR 61 ML/MIN
[2018-05-11] MEDS: Protein Shake (high protein) 240ml (8oz) cup PO SCH ×3 (08:00→19:34)
[2018-05-11] MEDS: lactose-reduced food (Ensure High Protein) 237ml bottle PO SCH ×3 (08:00→18:00)
[2018-05-11] MEDS: levetiracetam inj 500 MG in normal saline 100ml IV soln 95 ML IV SCH (08:35)
[2018-05-11] MEDS: fluticasone nasal spray 16GM bottle NS SCH ×2 (08:35→20:00)
[2018-05-11] MEDS: aspirin 81mg tab.chew PO SCH (08:36)
[2018-05-11] MEDS: carVEDilol 3.125mg tablet PO SCH ×2 (08:36→20:59)
[2018-05-11] MEDS: docusate sod 100mg capsule PO SCH ×2 (08:36→20:00)
[2018-05-11] MEDS: spironolactone 25 MG tablet PO SCH (08:37)
[2018-05-11] MEDS: pantoprazole 40mg Tablet.DR PO SCH ×2 (08:37→20:59)
[2018-05-11] MEDS: heparin, porcine 5000 units/ml vial SQ SCH ×2 (08:37→20:59)
[2018-05-11] MEDS: acetaminophen 325mg tablet PO PRN (10:04)
[2018-05-11] MEDS ORDERED: cosyntropin 250mcg inj IV ONE (13:30)
[2018-05-11] MEDS: levetiracetam 250mg tablet PO SCH (20:59)
[2018-05-11] MEDS: ROSUVASTATIN 10 MG PO SCH (21:00)
[2018-05-12] VITALS (25 sets, daily range): BP systolic 94–161; BP diastolic 63–105
[2018-05-12 04:19] LABS: BASOPHILS % (AUTO) 0.1 % (0-1); EOSINOPHILS % (AUTO) 0 % (0-6); HEMATOCRIT 33.1 % (35.0-45.0); HEMOGLOBIN 10.9 g/dl (12.0-16.0); LYMPHOCYTES # (AUTO) 0.6 X10'3 (1.1-4.8); LYMPHOCYTES % (AUTO) 8.1 % (21-51); MEAN CORPUSCULAR HEMOGLOBIN 31.4 PG (27.0-31.0); MEAN CORPUSCULAR HGB CONC 32.9 % (33.0-36.5); MEAN CORPUSCULAR VOLUME 95.3 FL (78-98); MONOCYTES # (AUTO) 0.5 X10'3 (0-0.9); MONOCYTES % (AUTO) 7.5 % (2-12); NEUTROPHILS % (AUTO) 84.3 % (42-75); PLATELET COUNT 160 X10'3 (140-440); RED BLOOD COUNT 3.47 X10'6 (4.20-5.60); RED CELL DISTRIBUTION WIDTH 17.8 % (11.5-14.5); WHITE BLOOD COUNT 7.2 X10'3 (4.5-11.0)
[2018-05-12 04:25] LABS: ALBUMIN 3.5 G/DL (3.4-5.0); ANION GAP 10 (8-16); BLOOD UREA NITROGEN 17 MG/DL (7-18); BUN/CREATININE RATIO 17.9 (6.6-38.0); CALCIUM 8.1 MG/DL (8.5-10.1); CHLORIDE 103 MMOL/L (99-107); CREATININE 0.95 MG/DL (0.40-0.90); GLUCOSE 114 MG/DL (70-104); MAGNESIUM 2.1 MG/DL (1.5-2.4); POTASSIUM 4.5 MMOL/L (3.5-5.1); SODIUM 135 MMOL/L (135-145); eGFR 68 ML/MIN
[2018-05-12] MEDS: ipratropium 0.5 MG/2.5ML nebule IH SCH ×4 (04:28→20:39)
[2018-05-12] MEDS: Protein Shake (high protein) 240ml (8oz) cup PO SCH ×3 (08:00→18:00)
[2018-05-12] MEDS: lactose-reduced food (Ensure High Protein) 237ml bottle PO SCH ×3 (08:00→18:00)
[2018-05-12] MEDS: docusate sod 100mg capsule PO SCH ×2 (08:00→20:00)
[2018-05-12] MEDS: carVEDilol 3.125mg tablet PO SCH ×2 (08:00→20:51)
[2018-05-12] MEDS: levetiracetam 250mg tablet PO SCH ×2 (08:28→20:51)
[2018-05-12] MEDS: fluticasone nasal spray 16GM bottle NS SCH ×2 (08:28→20:52)
[2018-05-12] MEDS: aspirin 81mg tab.chew PO SCH (08:28)
[2018-05-12] MEDS: pantoprazole 40mg Tablet.DR PO SCH ×2 (08:29→20:51)
[2018-05-12] MEDS: heparin, porcine 5000 units/ml vial SQ SCH ×2 (08:29→20:52)
[2018-05-12] MEDS: spironolactone 25 MG tablet PO SCH (08:30)
[2018-05-12] MEDS ORDERED: midodrine 5mg tablet PO ONE (11:00)
[2018-05-12] MEDS: ondansetron/PF 4mg/2ml inj IV PRN (18:36)
[2018-05-12] MEDS: ROSUVASTATIN 10 MG PO SCH (20:53)
[2018-05-12] MEDS: temazepam 15mg capsule PO PRN (21:04)
[2018-05-13] VITALS (25 sets, daily range): BP systolic 71–145; BP diastolic 52–93
[2018-05-13] MEDS: mag hydrox/Alum hydrox/simeth 30ml oral suspension PO PRN ×2 (01:34→15:09)
[2018-05-13] MEDS: ipratropium 0.5 MG/2.5ML nebule IH SCH ×4 (02:43→20:03)
[2018-05-13 04:19] LABS: ALANINE AMINOTRANSFERASE 24 U/L (12-78); ALBUMIN 3.3 G/DL (3.4-5.0); ALBUMIN/GLOBULIN RATIO 1.4 (1.1-1.5); ALKALINE PHOSPHATASE 61 IU/L (46-116); ANION GAP 8 (8-16); ASPARTATE AMINO TRANSFERASE 17 U/L (10-37); BLOOD UREA NITROGEN 19 MG/DL (7-18); BUN/CREATININE RATIO 21.1 (6.6-38.0); CALCIUM 8.6 MG/DL (8.5-10.1); CHLORIDE 105 MMOL/L (99-107); GLUCOSE 89 MG/DL (70-104); MAGNESIUM 2.2 MG/DL (1.5-2.4); POTASSIUM 4.6 MMOL/L (3.5-5.1); SODIUM 136 MMOL/L (135-145); TOTAL CARBON DIOXIDE 23.4 MMOL/L (24-32); TOTAL PROTEIN 5.7 G/DL (6.4-8.2); eGFR 72 ML/MIN
[2018-05-13] MEDS: fluticasone nasal spray 16GM bottle NS SCH ×2 (08:08→20:43)
[2018-05-13] MEDS: Protein Shake (high protein) 240ml (8oz) cup PO SCH ×3 (08:09→18:54)
[2018-05-13] MEDS: docusate sod 100mg capsule PO SCH ×2 (08:09→20:00)
[2018-05-13] MEDS: pantoprazole 40mg Tablet.DR PO SCH ×2 (08:09→20:44)
[2018-05-13] MEDS: aspirin 81mg tab.chew PO SCH (08:09)
[2018-05-13] MEDS: spironolactone 25 MG tablet PO SCH (08:09)
[2018-05-13] MEDS: lactose-reduced food (Ensure High Protein) 237ml bottle PO SCH ×3 (08:09→18:00)
[2018-05-13] MEDS: levetiracetam 250mg tablet PO SCH ×2 (08:09→20:44)
[2018-05-13] MEDS: carVEDilol 3.125mg tablet PO SCH ×2 (08:09→20:44)
[2018-05-13] MEDS: heparin, porcine 5000 units/ml vial SQ SCH ×2 (08:10→20:43)
[2018-05-13] MEDS: guaiFENesin 200 MG/10 ML oral syrup UD cup PO PRN (14:19)
[2018-05-13] MEDS: acetaminophen 325mg tablet PO PRN (15:34)
[2018-05-13] MEDS: ondansetron/PF 4mg/2ml inj IV PRN (20:43)
[2018-05-13] MEDS: ROSUVASTATIN 10 MG PO SCH (21:00)
[2018-05-14] VITALS (24 sets, daily range): BP systolic 91–150; BP diastolic 65–92
[2018-05-14] MEDS: ipratropium 0.5 MG/2.5ML nebule IH SCH ×4 (02:49→21:36)
[2018-05-14] MEDS: DOBUTamine-DoBUTrex 500mg/D5W 250 ML IV SCH (03:30)
[2018-05-14] MEDS: acetaminophen 325mg tablet PO PRN ×2 (04:44→10:39)
[2018-05-14] MEDS: carVEDilol 3.125mg tablet PO SCH ×2 (08:03→20:37)
[2018-05-14] MEDS: aspirin 81mg tab.chew PO SCH (08:03)
[2018-05-14] MEDS: spironolactone 25 MG tablet PO SCH (08:03)
[2018-05-14] MEDS: docusate sod 100mg capsule PO SCH ×2 (08:03→20:37)
[2018-05-14] MEDS: levetiracetam 250mg tablet PO SCH ×2 (08:03→20:37)
[2018-05-14] MEDS: pantoprazole 40mg Tablet.DR PO SCH ×2 (08:03→20:37)
[2018-05-14] MEDS: Protein Shake (high protein) 240ml (8oz) cup PO SCH ×3 (08:04→18:00)
[2018-05-14] MEDS: fluticasone nasal spray 16GM bottle NS SCH ×2 (08:04→20:38)
[2018-05-14] MEDS: heparin, porcine 5000 units/ml vial SQ SCH ×2 (08:04→20:38)
[2018-05-14] MEDS: lactose-reduced food (Ensure High Protein) 237ml bottle PO SCH ×3 (08:04→18:00)
[2018-05-14 12:15] LABS: ALANINE AMINOTRANSFERASE 19 U/L (12-78); ALBUMIN 3.1 G/DL (3.4-5.0); ALBUMIN/GLOBULIN RATIO 1.1 (1.1-1.5); ALKALINE PHOSPHATASE 65 IU/L (46-116); ANION GAP 8 (8-16); ASPARTATE AMINO TRANSFERASE 11 U/L (10-37); BILIRUBIN,TOTAL 0.9 MG/DL (0.1-1.0); BLOOD UREA NITROGEN 21 MG/DL (7-18); CALCIUM 9.1 MG/DL (8.5-10.1); CHLORIDE 102 MMOL/L (99-107); CREATININE 1.05 MG/DL (0.40-0.90); GLUCOSE 126 MG/DL (70-104); MAGNESIUM 2.2 MG/DL (1.5-2.4); PHOSPHORUS 1.7 MG/DL (2.3-4.5); POTASSIUM 4.7 MMOL/L (3.5-5.1); SODIUM 133 MMOL/L (135-145); TOTAL CARBON DIOXIDE 22.9 MMOL/L (24-32); TOTAL PROTEIN 5.8 G/DL (6.4-8.2); eGFR 61 ML/MIN
[2018-05-14] MEDS: guaiFENesin 200 MG/10 ML oral syrup UD cup PO PRN (17:42)
[2018-05-14] MEDS: ROSUVASTATIN 10 MG PO SCH (21:00)
[2018-05-14] MEDS: temazepam 15mg capsule PO PRN (21:42)
[2018-05-15] VITALS (15 sets, daily range): BP systolic 125–158; BP diastolic 82–102
[2018-05-15] MEDS: ondansetron/PF 4mg/2ml inj IV PRN ×2 (00:07→09:27)
[2018-05-15] MEDS: ipratropium 0.5 MG/2.5ML nebule IH SCH ×2 (02:53→08:11)
[2018-05-15 02:58] LABS: BASOPHILS % (AUTO) 0.3 % (0-1); EOSINOPHILS % (AUTO) 0.1 % (0-6); HEMOGLOBIN 11.2 g/dl (12.0-16.0); LYMPHOCYTES # (AUTO) 0.8 X10'3 (1.1-4.8); LYMPHOCYTES % (AUTO) 10.4 % (21-51); MEAN CORPUSCULAR HEMOGLOBIN 31.4 PG (27.0-31.0); MEAN CORPUSCULAR HGB CONC 32.8 % (33.0-36.5); MEAN CORPUSCULAR VOLUME 95.7 FL (78-98); MEAN PLATELET VOLUME 8.5 FL (7.4-10.4); MONOCYTES # (AUTO) 0.8 X10'3 (0-0.9); MONOCYTES % (AUTO) 10.3 % (2-12); NEUTROPHILS # (AUTO) 5.8 X10'3 (1.8-7.7); NEUTROPHILS % (AUTO) 78.9 % (42-75); PLATELET COUNT 199 X10'3 (140-440); RED BLOOD COUNT 3.55 X10'6 (4.20-5.60); RED CELL DISTRIBUTION WIDTH 18.1 % (11.5-14.5); WHITE BLOOD COUNT 7.4 X10'3 (4.5-11.0)
[2018-05-15] MEDS: guaiFENesin 200 MG/10 ML oral syrup UD cup PO PRN ×2 (03:25→09:59)
[2018-05-15 03:39] LABS: ALANINE AMINOTRANSFERASE 20 U/L (12-78); ALBUMIN 2.9 G/DL (3.4-5.0); ALBUMIN/GLOBULIN RATIO 1.1 (1.1-1.5); ALKALINE PHOSPHATASE 74 IU/L (46-116); ANION GAP 8 (8-16); ASPARTATE AMINO TRANSFERASE 12 U/L (10-37); BILIRUBIN,TOTAL 0.8 MG/DL (0.1-1.0); BLOOD UREA NITROGEN 17 MG/DL (7-18); BUN/CREATININE RATIO 19.3 (6.6-38.0); CHLORIDE 104 MMOL/L (99-107); CREATININE 0.88 MG/DL (0.40-0.90); GLUCOSE 108 MG/DL (70-104); MAGNESIUM 2.1 MG/DL (1.5-2.4); PHOSPHORUS 2.4 MG/DL (2.3-4.5); POTASSIUM 4.6 MMOL/L (3.5-5.1); SODIUM 136 MMOL/L (135-145); TOTAL CARBON DIOXIDE 24.5 MMOL/L (24-32); TOTAL PROTEIN 5.6 G/DL (6.4-8.2); eGFR 74 ML/MIN
[2018-05-15] MEDS: carVEDilol 3.125mg tablet PO SCH (04:58)
[2018-05-15] MEDS: DOBUTamine-DoBUTrex 500mg/D5W 250 ML IV SCH (05:13)
[2018-05-15 05:20] LABS: TROPONIN I 0.15 NG/ML (0.0-0.05)
[2018-05-15] MEDS: fluticasone nasal spray 16GM bottle NS SCH (07:42)
[2018-05-15] MEDS: levetiracetam 250mg tablet PO SCH (07:43)
[2018-05-15] MEDS: pantoprazole 40mg Tablet.DR PO SCH (07:43)
[2018-05-15] MEDS: aspirin 81mg tab.chew PO SCH (07:43)
[2018-05-15] MEDS: mag hydrox/Alum hydrox/simeth 30ml oral suspension PO PRN (07:43)
[2018-05-15] MEDS: docusate sod 100mg capsule PO SCH (07:43)
[2018-05-15] MEDS: heparin, porcine 5000 units/ml vial SQ SCH (07:46)
[2018-05-15] MEDS: lactose-reduced food (Ensure High Protein) 237ml bottle PO SCH ×2 (08:00→13:00)
[2018-05-15] MEDS: Protein Shake (high protein) 240ml (8oz) cup PO SCH ×2 (08:00→13:00)
[2018-05-15] MEDS: spironolactone 25 MG tablet PO SCH (09:21)
== END 2018-05-15 14:25 | DRG 280 ==
LOC: ER 18:07 → ED HOLD 21:24 → PCU 3S 22:46 → ICU 2S 05-08 09:57
PROVIDERS: ADMIT Family Medicine
PROC: 4A023N8 Measurement of Cardiac Sampling and Pressure, Bilateral, Percutaneous Approach (ICD-10-PCS; principal; 2018-05-03)
PROC: B2111ZZ Fluoroscopy of Multiple Coronary Arteries using Low Osmolar Contrast (ICD-10-PCS; 2018-05-03)
PROC: B2151ZZ Fluoroscopy of Left Heart using Low Osmolar Contrast (ICD-10-PCS; 2018-05-03)
PROC: B2181ZZ Fluoroscopy of Left Internal Mammary Bypass Graft using Low Osmolar Contrast (ICD-10-PCS; 2018-05-03)
PROC: 0DB68ZX Excision of Stomach, Via Natural or Artificial Opening Endoscopic, Diagnostic (ICD-10-PCS; 2018-05-05)
PROC: 5A12012 Performance of Cardiac Output, Single, Manual (ICD-10-PCS; 2018-05-08)
PROC: 02HV33Z Insertion of Infusion Device into Superior Vena Cava, Percutaneous Approach (ICD-10-PCS; 2018-05-11)
PROC: B548ZZA Ultrasonography of Superior Vena Cava, Guidance (ICD-10-PCS; 2018-05-11)
PROC: 4A10X4Z Monitoring of Central Nervous Electrical Activity, External Approach (ICD-10-PCS; 2018-05-11)
DX: I21.A1 Myocardial infarction type 2 (principal); I50.23 Acute on chronic systolic (congestive) heart failure; I13.0 Hypertensive heart and chronic kidney disease with heart failure and stage 1 through stage 4 chronic kidney disease, or unspecified chronic kidney disease; N39.0 Urinary tract infection, site not specified; I47.2 Ventricular tachycardia; K22.10 Ulcer of esophagus without bleeding; N18.9 Chronic kidney disease, unspecified; E78.00 Pure hypercholesterolemia, unspecified; E87.6 Hypokalemia; G62.9 Polyneuropathy, unspecified; I25.110 Atherosclerotic heart disease of native coronary artery with unstable angina pectoris; J44.9 Chronic obstructive pulmonary disease, unspecified; I95.9 Hypotension, unspecified; K21.0 Gastro-esophageal reflux disease with esophagitis; K29.00 Acute gastritis without bleeding; K25.9 Gastric ulcer, unspecified as acute or chronic, without hemorrhage or perforation; M19.90 Unspecified osteoarthritis, unspecified site; K44.9 Diaphragmatic hernia without obstruction or gangrene; E78.5 Hyperlipidemia, unspecified; R09.02 Hypoxemia; I27.20 Pulmonary hypertension, unspecified; R56.9 Unspecified convulsions; R55 Syncope and collapse; Z60.2 Problems related to living alone; Z99.81 Dependence on supplemental oxygen; Z90.49 Acquired absence of other specified parts of digestive tract; Z95.5 Presence of coronary angioplasty implant and graft; Z88.5 Allergy status to narcotic agent; Z88.8 Allergy status to other drugs, medicaments and biological substances; Z88.1 Allergy status to other antibiotic agents; Z91.011 Allergy to milk products; Z79.899 Other long term (current) drug therapy; Z79.82 Long term (current) use of aspirin; Z87.891 Personal history of nicotine dependence; Z82.3 Family history of stroke; Z82.49 Family history of ischemic heart disease and other diseases of the circulatory system; Z83.3 Family history of diabetes mellitus; Z80.9 Family history of malignant neoplasm, unspecified
CPT/HCPCS: 36415; 36569; 36600; 43239; 70544; 70551; 71045; 74018; 76937; 80048; 80053; 80061; 81001; 82533; 82803; 82948; 83036; 83690; 83735; 83880; 84100; 84443; 84484; 85014; 85018; 85025; 85347; 85379; 85610; 85730; 87070; 87088; 88305; 88342; 93005; 93461; 94640; 94760; 95816; 96361; 96365; 96375; 97110; 97116; 97162; 97530; 99152; 99153; 99291; A4620; A6257; C1769; C9113; G0378; J0360; J0834; J1200; J1250; J1644; J1940; J1953; J2001; J2250; J2405; J2765; J3010; J3480; J3490; J7030; J8597; P9045; P9047; Q0163; Q9967

== ENCOUNTER 2018-05-22 15:11 | Outpatient (CLI) | payer OTHER ==
[~2018-05-22 15:11] MED LIST changes: +CARV-49 PO; -IMMU1VIA SQ; -MULT-1141 PO; -PANT40SU2 PO; -ePHEDrine 50MG/ML INJ. ONE
[2018-05-22] MEDS ORDERED: iohexol 300mg/ml 100ml inj. ONE (15:14)
== END 2018-05-22 23:59 | disposition home or self-care (01) ==
LOC: 64 CT 15:11
PROVIDERS: ATTEND Internal Medicine
DX: J34.89 Other specified disorders of nose and nasal sinuses (principal); I11.0 Hypertensive heart disease with heart failure; I50.23 Acute on chronic systolic (congestive) heart failure; J44.9 Chronic obstructive pulmonary disease, unspecified; K21.9 Gastro-esophageal reflux disease without esophagitis; Z79.82 Long term (current) use of aspirin; Z87.891 Personal history of nicotine dependence; Z95.1 Presence of aortocoronary bypass graft
CPT/HCPCS: 70488; Q9967

== ENCOUNTER 2018-07-20 09:16 | Inpatient (IN) | payer MEDICARE, OTHER | END 2018-07-24 14:15 | LOC: ER 09:16 → ED HOLD 12:40 → ORTHO 4S 13:50 → PCU 3S 20:00 | DX: I21.A1 Myocardial infarction type 2 (principal); I50.23 Acute on chronic systolic (congestive) heart failure; S82.52XA Displaced fracture of medial malleolus of left tibia, initial encounter for closed fracture; S82.832A Other fracture of upper and lower end of left fibula, initial encounter for closed fracture; J44.9 Chronic obstructive pulmonary disease, unspecified; I50.9 Heart failure, unspecified ==

== ENCOUNTER 2018-08-05 10:21 | Outpatient (CLI) | payer MEDICARE, OTHER ==
[~2018-08-05 10:21] MED LIST changes: -BACL10TA2 PO; -BUDE0.5A11 NEB; -CALC-331 PO; -CARV-49 PO; +CARV3.12 PO; -CHOL2000 PO; -FLUT100D2 INH; +FLUT16SP2 BOTHNARES; -FURO-150 PO; +FURO40TA4 PO; -GARL1000; +KEP500T PO; +LEVO50TA8 PO; -LOSA50TA3 PO; +MELA3TAB PO; +MONT10TA24 PO; +ONDA4TAB6 PO; +PANT-47 PO; -PAT0.1OS OP; +POTA10TA19 PO; -SPIIN INH; +SPIR25TA PO; +SUCR1TAB PO
[2018-08-05 10:28] VITALS: BP 110/78
== END 2018-08-05 11:06 ==
LOC: ORTHO 10:21
PROVIDERS: ATTEND Nurse Practitioner Family
DX: S82.65XG Nondisplaced fracture of lateral malleolus of left fibula, subsequent encounter for closed fracture with delayed healing (principal); Z91.011 Allergy to milk products; Z88.5 Allergy status to narcotic agent; Z88.6 Allergy status to analgesic agent; W01.0XXD Fall on same level from slipping, tripping and stumbling without subsequent striking against object, subsequent encounter
CPT/HCPCS: 73610; 99213

== ENCOUNTER 2018-08-07 13:29 | Inpatient (IN) | payer MEDICARE, OTHER ==
[~2018-08-07] VITALS: Ht 157.5 cm; Wt 65.9 kg
[~2018-08-07 13:29] MED LIST changes: +NORepinephrine 1 mg/ml inj IV ONE; +calcium chloride 100 MG/1 ML inj IV ONE; +epiNEPHrine 0.1mg/ml 10ml syringe ONE; +sod chloride 0.9% 10ml flush syringe IV ONE; +sodium bicarbonate (8.4%) 1 mEq/ml syringe ONE
[2018-08-07] MEDS ORDERED: normal saline 1000ML IV soln IVB ONE ×2 (13:40→14:25)
[2018-08-07] MEDS ORDERED: naloxone 2mg/2ml inj IV ONE (13:40)
--- NOTE | 2018-08-07 13:50 | NUR ---
Dr. Estrada stated to hold narcan for now.
[2018-08-07 14:02] LABS: BASOPHILS % (AUTO) 0.1 % (0-1); EOSINOPHILS % (AUTO) 0 % (0-6); HEMATOCRIT 35.2 % (35.0-45.0); HEMOGLOBIN 11.3 g/dl (12.0-16.0); LYMPHOCYTES # (AUTO) 0.8 X10'3 (1.1-4.8); MEAN CORPUSCULAR HEMOGLOBIN 29.6 PG (27.0-31.0); MEAN CORPUSCULAR HGB CONC 32.2 g/dL (33.0-36.5); MONOCYTES # (AUTO) 1.1 X10'3 (0-0.9); MONOCYTES % (AUTO) 4.4 % (2-12); NEUTROPHILS # (AUTO) 23.9 X10'3 (1.8-7.7); NEUTROPHILS % (AUTO) 92.5 % (42-75); PLATELET COUNT 301 X10'3 (140-440); RED BLOOD COUNT 3.82 X10'6 (4.20-5.60); RED CELL DISTRIBUTION WIDTH 16.9 % (11.5-14.5)
[2018-08-07 14:07] LABS: WHITE BLOOD COUNT 25.9 X10'3 (4.5-11.0)
[2018-08-07 14:17] LABS: INR 1.9 INR; PARTIAL THROMBOPLASTIN TIME 42 SECONDS (22-32); PROTHROMBIN TIME 18.5 SECONDS (9.0-12.0)
[2018-08-07 14:18] LABS: ALANINE AMINOTRANSFERASE 19 U/L (12-78); ALBUMIN 2.4 G/DL (3.4-5.0); ALBUMIN/GLOBULIN RATIO 0.8 (1.1-1.5); ALKALINE PHOSPHATASE 118 IU/L (46-116); ANION GAP 14 (8-16); ASPARTATE AMINO TRANSFERASE 17 U/L (10-37); BILIRUBIN,TOTAL 1.9 MG/DL (0.1-1.0); BLOOD UREA NITROGEN 26 MG/DL (7-18); BUN/CREATININE RATIO 11.4 (6.6-38.0); CALCIUM 8.4 MG/DL (8.5-10.1); CHLORIDE 91 MMOL/L (99-107); CREATININE 2.28 MG/DL (0.40-0.90); GLUCOSE 71 MG/DL (70-104); POTASSIUM 4.7 MMOL/L (3.5-5.1); SODIUM 125 MMOL/L (135-145); TOTAL CARBON DIOXIDE 20.5 MMOL/L (24-32); TOTAL PROTEIN 5.4 G/DL (6.4-8.2); eGFR 25 ML/MIN
[2018-08-07] MEDS ORDERED: azithromycin/NS 500mg/250ml 250 ML IV ONE (14:20)
[2018-08-07] MEDS ORDERED: cefepime 1GM/NS ADD-VANTAGE 100 ML IV ONE (14:20)
[2018-08-07] MEDS ORDERED: MULT1TAB74 PO (14:25)
[2018-08-07] MEDS ORDERED: SENN-162 PO (14:25)
[2018-08-07] MEDS ORDERED: DOCU-20 PO (14:25)
[2018-08-07] MEDS ORDERED: METO5TAB85 PO (14:25)
[2018-08-07] MEDS ORDERED: FURO-150 PO (14:25)
[2018-08-07] MEDS ORDERED: IPRA3AMP31 IH ×2 (14:25→14:33)
[2018-08-07 14:33] LABS: TOTAL CELLS COUNTED 100
[2018-08-07] MEDS ORDERED: BISA10SU60 RC (14:33)
[2018-08-07] MEDS ORDERED: MAGN400O6 PO (14:33)
[2018-08-07] MEDS ORDERED: ACET-2119 PO (14:33)
[2018-08-07] MEDS ORDERED: NA P133E4 RC (14:33)
[2018-08-07] MEDS ORDERED: SODI30SP3 BOTHNARES (14:33)
[2018-08-07] MEDS ORDERED: TRAM50TA2 PO (14:33)
[2018-08-07 14:34] LABS: ANISOCYTOSIS 1+; BURR CELLS 2+; PLATELET ESTIMATE NORMAL
[2018-08-07 14:56] LABS: CLARITY,URINE SLIGHTLY CLOUDY (Clear); COLOR,URINE AMBER (Yellow); GLUCOSE, URINE NEGATIVE (Neg); KETONES,URINE TRACE mg/dl (Neg); LEUKOCYTE ESTERASE ,URINE MODERATE (Neg); NITRITES, URINE NEGATIVE (Neg); OCCULT BLOOD,URINE SMALL (Neg); PROTEIN,URINE 100 mg/dl (Neg)
[2018-08-07] MEDS ORDERED: vancomycin/NS 1 GM ADD-VANTAGE 250 ML IV ONE (15:00)
[2018-08-07 15:02] LABS: UA COLLECTION TYPE FOLEY CATH
[2018-08-07 15:03] LABS: BACTERIA,URINE 3+ /HPF (Neg); MUCUS STRANDS NONE SEEN /LPF (Neg); RBC,URINE 0-2 /HPF (0-2); RENAL CELLS, URINE FEW /HPF; SQUAMOUS EPITHELIAL CELL,UR MODERATE /LPF (FEW); WBC,URINE 20-30 /HPF (0-4)
[2018-08-07] MEDS ORDERED: NORepinephrine 8mg/ 250ml NS 250 ML IV SCH (15:05)
[2018-08-07 15:13] LABS: URINE AMPHETAMINE SCREEN NEGATIVE (Neg); URINE BARBITUATE SCREEN NEGATIVE (Neg); URINE BENZODIAZEPINES SCREEN NEGATIVE (Neg); URINE CANNABINOID SCREEN NEGATIVE (Neg); URINE COCAINE SCREEN NEGATIVE (Neg); URINE METHADONE SCREEN NEGATIVE (Neg); URINE OPIATE SCREEN NEGATIVE (Neg); URINE PHENCYCLIDINE SCREEN NEGATIVE (Neg)
[2018-08-07] MEDS ORDERED: FENTANYL-0.9 % NACL/PF 100 ML IV PRN ×2 (15:45→16:18)
[2018-08-07] MEDS ORDERED: midazolam 100mg in NS 100ml 100 ML IV PRN ×2 (15:45→16:18)
[2018-08-07 15:51] LABS: ABG BASE EXCESS -11.2 mmol/L (-2.0-3.0); ABG HCO3 18.5 mmol/L (22.0-26.0); ABG OXYGEN SATURATION 90.6 % (95-98); ABG PCO2 (T) 65.9 mmHg (32.0-45.0); ABG PH (T) 7.067 (7.350-7.450); ABG PO2 (T) 93.4 mmHg (83-108); FCOHb 0.4 % (0.5-1.5); FMetHb 0.3 % (0.3-1.12); MINUTE VOLUME 8 L/min; PEEP 5 cm H2O; RESPIRATORY RATE 18 b/min; RESPIRATORY RATE (OBSERVED) 20 b/min; TIDAL VOLUME 400 mL; TOTAL HEMOGLOBIN 8.1 G/dl (12.0-16.0)
[2018-08-07 15:58] LABS: C DIFF ANTIGEN NEGATIVE (NEGATIVE); C DIFF SPECIMEN=DIARRHEA? ACCEPTABLE; C DIFFICILE TOXINS A&B NEGATIVE (Neg)
[2018-08-07] MEDS ORDERED: normal saline 1000ml 1,000 ML IV SCH (16:18)
[2018-08-07] MEDS ORDERED: acetaminophen 325mg tablet PO PRN ×2 (16:20)
[2018-08-07] MEDS ORDERED: potassium Cl 40MEQ/NS 500ml 500 ML IV PRN ×2 (16:20)
[2018-08-07] MEDS ORDERED: EPICAL 5MG & 1000MG PER 250ML INFUSION IV PRN ×3 (16:20)
[2018-08-07] MEDS ORDERED: potassium Cl 20 mEq SR tablet PO PRN ×2 (16:20)
[2018-08-07] MEDS ORDERED: midazolam 2 mg/2 ml injection IV ONE (16:20)
[2018-08-07] MEDS ORDERED: potassium Cl 40MEQ/250ML bag 250 ML IV PRN (16:20)
[2018-08-07] MEDS ORDERED: ipratropium/albuterol 3ml nebule NEB PRN (16:20)
[2018-08-07] MEDS ORDERED: fentaNYL/PF 50MCG/1 ML 2ML syringe IV PRN (16:20)
[2018-08-07] MEDS ORDERED: potassium Cl 40MEQ/250ML bag 250 ML IV SCH (16:20)
[2018-08-07] MEDS ORDERED: ondansetron/PF 4mg/2ml inj IV PRN (16:20)
--- NOTE | 2018-08-07 16:30 | NUR ---
1630 0.1 EPI AND 1/2 AMP OF CA GIVEN WHEN SBP 87
[2018-08-07] MEDS ORDERED: cefepime 1GM/NS ADD-VANTAGE 100 ML IV SCH (16:50)
[2018-08-07] MEDS ORDERED: vancomycin/NS 1 GM ADD-VANTAGE 250 ML IV PRN (16:50)
--- NOTE | 2018-08-07 17:03 | NUR ---
0.1 EPI admin iv bp 83/62.
--- NOTE | 2018-08-07 17:45 | NUR ---
Pt arrived to floor with RN and RT at bedside. BP was 120os/60s from ART line, above max doses of epical, levophed. Pt unresponsive, ventilated with frothy blood in ET tube. No cuff pressure present.
[2018-08-07 18:00] VITALS: BP 110/47
--- NOTE | 2018-08-07 18:10 | NUR ---
Called Dr Gamboa about the BP dropping to 50s/30s and to clarify code status, he states family wants her to remain a full code but that we can go and ask them again if they want us to keep her a full code. He states he is now signing off the case and to call Dr Lee with any further needs. I spoke with son and another family member and told them the situation was grave, and that we were very close to coding her again. I explained the details of what further chest compressions would mean and they stated to do everything we can to keep her alive because there was still more family that needed to come. At this time a code was called because BP from ART line was lost, HR going further bradycardic.
[2018-08-07 18:15] VITALS: BP 79/47
--- NOTE | 2018-08-07 18:29 | NUR ---
time of was called by Dr Estrada at 1829. Family immediately made aware.
[2018-08-07] MEDS ORDERED: ipratropium/albuterol 3ml nebule NEB SCH (19:00)
[2018-08-07] MEDS ORDERED: famotidine/PF 10 mg/ml inj IV SCH (20:00)
[2018-08-07] MEDS ORDERED: heparin, porcine 5000 units/ml vial SQ SCH (20:00)
[2018-08-07] MEDS ORDERED: docusate sod 100mg capsule PO SCH (20:00)
--- NOTE | 2018-08-07 22:29 | NUR ---
Pt remains in house, family from out of town and Validation [employer]st have just arrived. They are discussing which mortuary to use. [employer] has released. Comfort cart available to family, needs and questions addressed.
--- NOTE | 2018-08-07 23:48 | NUR ---
Waiting on Mortuary, Family remains at bedside.
[2018-08-08] MEDS ORDERED: mineral oil/petrolatum ophthal oint EACHEYE SCH (20:00)
== END 2018-08-07 18:29 | disposition expired | DRG 871 ==
LOC: ER 13:29 → ED HOLD 16:18 → CICU 2S 17:45
PROVIDERS: ADMIT Internal Medicine Critical Care Medicine; ATTEND Internal Medicine Critical Care Medicine
PROC: 5A12012 Performance of Cardiac Output, Single, Manual (ICD-10-PCS; principal; 2018-08-07)
PROC: 5A1935Z Respiratory Ventilation, Less than 24 Consecutive Hours (ICD-10-PCS; 2018-08-07)
PROC: 0BH17EZ Insertion of Endotracheal Airway into Trachea, Via Natural or Artificial Opening (ICD-10-PCS; 2018-08-07)
PROC: 06HM33Z Insertion of Infusion Device into Right Femoral Vein, Percutaneous Approach (ICD-10-PCS; 2018-08-07)
DX: A41.9 Sepsis, unspecified organism (principal); R65.21 Severe sepsis with septic shock; J96.01 Acute respiratory failure with hypoxia; I13.0 Hypertensive heart and chronic kidney disease with heart failure and stage 1 through stage 4 chronic kidney disease, or unspecified chronic kidney disease; N17.9 Acute kidney failure, unspecified; I42.9 Cardiomyopathy, unspecified; I50.9 Heart failure, unspecified; I25.10 Atherosclerotic heart disease of native coronary artery without angina pectoris; E78.00 Pure hypercholesterolemia, unspecified; N18.3 Chronic kidney disease, stage 3 (moderate); I46.9 Cardiac arrest, cause unspecified; N30.90 Cystitis, unspecified without hematuria; J44.9 Chronic obstructive pulmonary disease, unspecified; I25.2 Old myocardial infarction; Z95.1 Presence of aortocoronary bypass graft; Z88.8 Allergy status to other drugs, medicaments and biological substances; Z88.4 Allergy status to anesthetic agent; Z88.1 Allergy status to other antibiotic agents; Z91.011 Allergy to milk products; Z90.49 Acquired absence of other specified parts of digestive tract; Z86.73 Personal history of transient ischemic attack (TIA), and cerebral infarction without residual deficits; Z87.11 Personal history of peptic ulcer disease; Z87.891 Personal history of nicotine dependence; Z82.49 Family history of ischemic heart disease and other diseases of the circulatory system; Z82.3 Family history of stroke; Z80.8 Family history of malignant neoplasm of other organs or systems; Z83.3 Family history of diabetes mellitus
CPT/HCPCS: 31500; 36415; 36556; 36600; 70450; 71045; 71250; 74176; 80053; 80305; 81001; 82140; 82803; 83605; 84145; 85018; 85025; 85610; 85730; 87040; 87045; 87046; 87070; 87077; 87088; 87185; 87186; 87324; 87449; 92950; 93005; 94002; 94640; 96365; 96375; 99291; 99292; G0378; J0171; J0456; J0692; J2250; J2310; J3370; J7030